=== PATIENT | male | born 1995 | race Caucasian/White ===

== ENCOUNTER 2016-08-21 18:18 | Emergency (ER) | payer BC ==
[~2016-08-21] VITALS: Ht 182.9 cm; Wt 80.1 kg
[2016-08-21 18:23] VITALS: TEMP 36.7; Ht 182.9 cm; Wt 80.1 kg
[2016-08-21] MEDS ORDERED: PRZC/10 PO (19:03)
[2016-08-21] MEDS ORDERED: EPP3/2 IM (19:03)
[2016-08-21] MEDS ORDERED: VENL75CA73 PO (19:03)
--- NOTE | 2016-08-21 19:30 | DIAGNOSTIC IMAGING REPORT ---
LEFT HAND MIN 3 VIEWS ROUTINE CLINICAL HISTORY: Left hand pain status post trauma COMPARISON: None. DISCUSSION: No acute fractures or dislocations are visualized. There is an old ununited ulnar styloid fracture. There is an old internally fixated distal radial fracture. IMPRESSION: Old postsurgical and post traumatic changes. No acute fractures. Electronically signed by: Roberto Allen M.D. 08/21/2016 7:28 PM Dictated Date/Time: 08/21/2016 7:28 PM
--- NOTE | 2016-08-21 19:31 | DIAGNOSTIC IMAGING REPORT ---
LEFT WRIST MIN 3 VIEWS ROUTINE CLINICAL HISTORY: Left wrist pain status post trauma COMPARISON: None. DISCUSSION: There is an old ununited ulnar styloid fracture. There is an old internally fixated distal radial fracture. No acute fractures or dislocations are visualized. IMPRESSION: Old posttraumatic and postsurgical changes. No acute fractures. Electronically signed by: Roberto Allen M.D. 08/21/2016 7:29 PM Dictated Date/Time: 08/21/2016 7:28 PM
[2016-08-21 19:52] VITALS: BP 130/76; PULSE 89; O2SAT 99
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
[2017-01-24] MEDS ORDERED: AZITTAB PO (02:09)
== END 2016-08-21 19:53 | disposition home or self-care (01) ==
LOC: C.EDB 18:19 → C.EDD 19:53
DX: S69.92XA Unspecified injury of left wrist, hand and finger(s), initial encounter (principal); W50.0XXA Accidental hit or strike by another person, initial encounter; Z79.899 Other long term (current) drug therapy

== ENCOUNTER → 2016-12-27 | Outpatient (CLI) | payer BC ==
[~2016-12-27] MED LIST: AMOX875T PO; AZITTAB PO; EPP3/2 IM; METH4PAK PO; ONDA4TAB10 SL; ONDA4TAB46 PO; PRZC/10 PO; VENL75CA73 PO
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
== END | disposition home or self-care (01) ==
LOC: C.MRI 13:52
PROVIDERS: ATTEND General Practice
DX: F07.81 Postconcussional syndrome (principal); G44.309 Post-traumatic headache, unspecified, not intractable; X58.XXXA Exposure to other specified factors, initial encounter

== ENCOUNTER 2017-01-25 01:29 | Emergency (ER) | payer BC ==
[~2017-01-25] VITALS: Ht 182.9 cm; Wt 82.6 kg
[~2017-01-25 01:29] MED LIST changes: -AMOX875T PO; -METH4PAK PO; -ONDA4TAB10 SL; -ONDA4TAB46 PO
[2017-01-25 01:39] VITALS: Ht 182.9 cm; Wt 82.6 kg
[2017-01-25] MEDS ORDERED: ONDA4TAB46 PO (02:09)
[2017-01-25] MEDS ORDERED: SODIUM CHLORIDE 0.9% 1000ML 1,000 ML IV STA (02:33)
[2017-01-25] MEDS ORDERED: ONDANSETRON INJ 2 MG/ML 2 ML VIAL IV STA (02:33)
[2017-01-25] MEDS ORDERED: KETOROLAC TROMETHAMINE 30 MG/ML VIAL IV STA (02:33)
[2017-01-25 02:55] LABS: BASO % 0.1 %; BASO ABS # 0.02 K/uL (0-0.2); COMPLETE YES; EOS % 0.2 %; HEMATOCRIT 45.5 % (42-52); IG% 0.3 %; LYMPH % 6.1 %; LYMPH ABS # 0.91 K/uL (1.2-3.4); MEAN CORPUSCULAR HEMOGLOBIN 32.3 pg (25-34); MEAN CORPUSCULAR HGB CONC 36.3 g/dl (32-36); MEAN PLATELET VOLUME 11.5 fL (7.4-10.4); MONO % 10.1 %; NEUT % 83.2 %; PLATELET COUNT 165 K/uL (130-400); RED BLOOD COUNT 5.11 M/uL (4.7-6.1); WHITE BLOOD COUNT 14.93 K/uL (4.8-10.8)
[2017-01-25 03:00] LABS: URINE APPEARANCE CLEAR (CLEAR); URINE BILIRUBIN NEG (NEG); URINE COLOR DK YELLOW; URINE NITRITE NEG (NEG); URINE PH 5.5 (4.5-7.5); URINE SPECIFIC GRAVITY 1.025 (1.000-1.030); UROBILINOGEN NEG (NEG); ZZUR CULT IF INDIC CLEAN CATCH NO
[2017-01-25 03:01] LABS: MANUAL MICROSCOPIC REQUIRED? NO; REVIEW REQ? NO
[2017-01-25 03:12] LABS: BUN/CREATININE RATIO 11.4 (10-20); CALCIUM 9.2 mg/dl (8.5-10.1); CREATININE 0.98 mg/dl (0.60-1.40); POTASSIUM 3.9 mmol/L (3.5-5.1)
[2017-01-25 03:15] LABS: ALB/GLOB RATIO 0.9 (0.9-2)
[2017-01-25] MEDS ORDERED: AMOXICIL/CLAVU 875MG HOME PACK PO ONE (04:00)
[2017-01-25] MEDS ORDERED: METH4PAK PO (04:08)
[2017-01-25] MEDS ORDERED: AMOX875T PO (04:08)
[2017-01-25] MEDS ORDERED: ONDA4TAB10 SL (04:08)
--- NOTE | 2017-01-25 04:09 | EMERGENCY ROOM VISIT NOTE ---
History First contact with patient: 02:09 Chief Complaint: ILLNESS Stated Complaint: PNEUMONIA,STOMACH PAIN,FATIGUE,VOMITING History of Present Illness The patient is a 21 year old male who presents to the Emergency Room with complaints of flulike symptoms. The patient states that he has been sick for approximately 2 weeks. He reports that he initially had a cough and sinus pressure. He attributed this to his previous septoplasty which was performed a few months ago. The patient states that over the past one week, he has developed nausea, vomiting, epigastric discomfort, sore throat and general weakness/fatigue. The patient was seen at an urgent care yesterday and diagnosed with pneumonia and a possible stomach ulcer. He was prescribed a Z- Jeff and Zofran which she has been taking with some relief. He rates his overall discomfort 8/10. He denies any neck pain/stiffness, urinary symptoms or changes in bowel movements. Review of Systems A complete 10 point review of systems was reviewed with the patient with pertinent positives and negatives as per history of present illness. All else were negative. Past Medical/Surgical History Medical Problems: (1) No Known Active Medical Problems (2) Wrist fracture Surgical Problems: (1) S/P wrist surgery Social History Smoking Status: Never Smoker Occupation Status: [employer] student Current/Historical Medications Scheduled Amoxicillin & Pot Clavulanate (Augmentin 875-125 mg), 1 TAB PO BID Azithromycin (Zithromax Z-Jeff), 1 PKT PO UD Methylprednisolone (Medrol Dosepak), 0 PO DAILY Ondasetron Odt (Zofran Odt), 4 MG SL Q6H Venlafaxine Hcl (Venlafaxine Extended Rel), 75 MG PO DAILY Scheduled PRN Epinephrine (Epipen), 0.3 MG IM UD PRN for ALLERGIC REACTION Ondansetron Hcl (Zofran), 4 MG PO Q6 PRN for Nausea Physical Exam Vital Signs Date Time Temp Pulse Resp B/P (MAP) Pulse Ox O2 Delivery O2 Flow Rate FiO2 01/25/17 04:21 36.8 99 18 114/58 97 01/25/17 03:16 101 18 128/67 98 Room Air 01/25/17 01:39 37.7 94 20 119/73 99 Room Air Physical Exam VITALS: Vitals are noted on the nurse's note and reviewed by myself. Vital signs stable. GENERAL: This is a 21-year-old male, in no acute distress, nondiaphoretic, well- developed well-nourished. SKIN: The skin was without rashes. EARS: External auditory canals clear, tympanic membranes pearly schultz without erythema or effusion bilaterally. EYES: Pupils equal round and reactive to light and accommodation. NOSE: Patent, turbinates without inflammation or discharge. MOUTH: Mucous membranes moist. Tonsils mildly enlarged bilaterally with erythema and exudate present on the right tonsil. Airway patent. NECK: Supple without nuchal rigidity. No lymphadenopathy. No meningismus. HEART: Regular rate and rhythm without murmurs gallops or rubs. LUNGS: Clear to auscultation bilaterally without wheezes, rales or rhonchi. ABDOMEN: Positive bowel sounds x 4. Soft, nontender to palpation. NEURO: Patient was alert and oriented to person place and time. Medical Decision & Procedures ER Provider Diagnostic Interpretation: CHEST X-RAY: No acute process. Laboratory Results 01/25/17 02:42 Red Blood Count 5.11, Mean Corpuscular Volume 89.0, Mean Corpuscular Hemoglobin 32.3, Mean Corpuscular Hemoglobin Concent 36.3, Mean Platelet Volume 11.5, Neutrophils (%) (Auto) 83.2, Lymphocytes (%) (Auto) 6.1, Monocytes (%) (Auto) 10.1, Eosinophils (%) (Auto) 0.2, Basophils (%) (Auto) 0.1, Neutrophils # (Auto ) 12.42, Lymphocytes # (Auto) 0.91, Monocytes # (Auto) 1.51, Eosinophils # (Auto ) 0.03, Basophils # (Auto) 0.02 01/25/17 02:42 Test 01/25/17 02:42 01/25/17 02:58 White Blood Count 14.93 K/uL (4.8-10.8) Red Blood Count 5.11 M/uL (4.7-6.1) Hemoglobin 16.5 g/dL (14.0-18.0) Hematocrit 45.5 % (42-52) Mean Corpuscular Volume 89.0 fL (80-100) Mean Corpuscular Hemoglobin 32.3 pg (25-34) Mean Corpuscular Hemoglobin Concent 36.3 g/dl (32-36) Platelet Count 165 K/uL (130-400) Mean Platelet Volume 11.5 fL (7.4-10.4) Neutrophils (%) (Auto) 83.2 % Lymphocytes (%) (Auto) 6.1 % Monocytes (%) (Auto) 10.1 % Eosinophils (%) (Auto) 0.2 % Basophils (%) (Auto) 0.1 % Neutrophils # (Auto) 12.42 K/uL (1.4-6.5) Lymphocytes # (Auto) 0.91 K/uL (1.2-3.4) Monocytes # (Auto) 1.51 K/uL (0.11-0.59) Eosinophils # (Auto) 0.03 K/uL (0-0.5) Basophils # (Auto) 0.02 K/uL (0-0.2) RDW Standard Deviation 40.4 fL (36.4-46.3) RDW Coefficient of Variation 12.5 % (11.5-14.5) Immature Granulocyte % (Auto) 0.3 % Immature Granulocyte # (Auto) 0.04 K/uL (0.00-0.02) Urine Color DK YELLOW Urine Appearance CLEAR (CLEAR) Urine pH 5.5 (4.5-7.5) Urine Specific [place] 1.025 (1.000-1.030) Urine Protein 1+ (NEG) Urine Glucose (UA) NEG (NEG) Urine Ketones 3+ (NEG) Urine Occult Blood 2+ (NEG) Urine Nitrite NEG (NEG) Urine Bilirubin NEG (NEG) Urine Urobilinogen NEG (NEG) Urine Leukocyte Esterase NEG (NEG) Urine WBC (Auto) 1-5 /hpf (0-5) Urine RBC (Auto) 0-4 /hpf (0-4) Urine Hyaline Casts (Auto) 1-5 /lpf (0-5) Urine Epithelial Cells (Auto) 5-10 /lpf (0-5) Urine Bacteria (Auto) NEG (NEG) Anion Gap 9.0 mmol/L (3-11) Est Creatinine Clear Calc Drug Dose 132.0 ml/min Estimated GFR () 128.1 Estimated GFR (Non- 110.5 BUN/Creatinine Ratio 11.4 (10-20) Calcium Level 9.2 mg/dl (8.5-10.1) Total Bilirubin 0.8 mg/dl (0.2-1) Aspartate Amino Transf (AST/SGOT) 17 U/L (15-37) Alanine Aminotransferase (ALT/SGPT) 21 U/L (12-78) Alkaline Phosphatase 79 U/L (45-117) Total Protein 7.9 gm/dl (6.4-8.2) Albumin 3.8 gm/dl (3.4-5.0) Globulin 4.1 gm/dl (2.5-4.0) Albumin/Globulin Ratio 0.9 (0.9-2) Monoscreen NEG (NEG) Influenza Type A Antigen Neg for Influ A (NEG) Influenza Type B Antigen Neg for Influ B (NEG) Medications Administered Medications (Trade) Dose Ordered Sig/[place] Route Start Time Stop Time Status Last Admin Dose Admin Sodium Chloride 1,000 ml @ 999 mls/hr Q1H1M STAT IV 01/25/17 02:33 01/25/17 03:33 DC 01/25/17 02:55 999 MLS/HR Ondansetron HCl (Zofran Inj) 4 mg NOW STAT IV 01/25/17 02:33 01/25/17 02:34 DC 01/25/17 02:55 4 MG Ketorolac Tromethamine (Toradol Inj) 30 mg NOW STAT IV 01/25/17 02:33 01/25/17 02:34 DC 01/25/17 02:56 30 MG Amoxicillin/ Clavulanate Potassium (Augmentin 875MG Home Pack) 1 homepack UD ONCE PO 01/25/17 04:00 01/25/17 04:01 DC 01/25/17 04:17 1 HOMEPACK Medical Decision Differential diagnosis includes mononucleosis, strep pharyngitis, influenza, viral illness, pneumonia, among others. The patient is a 21-year-old male who presents today complaining of flulike illness. Labs were unremarkable. Patient does have a leukocytosis likely secondary to infection. Monospot and influenza testing were negative. Rapid strep was negative, culture pending. He does have a low-grade fever. He was treated with fluids, Toradol and Zofran with significant relief. The patient will be treated for strep pharyngitis due to clinical suspicion. He will be placed on Augmentin. Conservative measures were discussed with the patient. Based on the patient's presentation and work up, I feel the patient is stable for outpatient treatment. The patient was educated to return to the emergency department for any worsening of their current condition or new/concerning symptoms. He will follow up with [facility]. Medication Reconcilliation Current Medication List: was personally reviewed by me Blood Pressure Screening Patient's blood pressure: Normal blood pressure Impression Primary Impression: Pharyngitis Departure Information Dispostion Home / Self-Care Condition GOOD Prescriptions Methylprednisolone (MEDROL DOSEPAK) 4 Mg Jeff 0 PO DAILY, #1 PKT Prov: Caitlin Pollard PA-C 01/25/17 Ondasetron Odt (ZOFRAN ODT) 4 Mg Tab 4 MG SL Q6H for Nausea, #10 TAB Prov: Caitlin Pollard PA-C 01/25/17 Amoxicillin & Pot Clavulanate (Augmentin 875-125 mg) 1 Tab Tab 1 TAB PO BID for 9 Days, #18 TAB Prov: Caitlin Pollard PA-C 01/25/17 Referrals [facility] (PCP) Patient Instructions My [facility] Additional Instructions You were prescribed Augmentin to be taken twice daily as prescribed. This is an antibiotic. All antibiotics have the potential to cause diarrhea. Stop this medication and contact a medical provider if you were to develop any significant adverse side effects including: wheezing, shortness of breath, passing out, vomiting, or a diffuse rash. Always take antibiotics as directed and COMPLETE the ENTIRE course regardless of the improvement of your symptoms. You have been prescribed a Medrol Dosepak. This is a steroid which will help decrease your inflammation. Take the medicine as prescribed. Take the ENTIRE 6 day course of the steroids. For pain control, you can use the following [id number] medicines (if >12 yo): - Regular strength (325mg/tab) Tylenol (acetaminophen) 2 tabs every 4-6 hours as needed. Do not exceed 12 tablets in a 24 hour period. Avoid taking more than 4 grams (4000 mg) of Tylenol per day. This includes any other sources of acetaminophen you may take on a regular basis. - Regular strength (200 mg/tab) Advil (ibuprofen) 1-2 tabs every 4-6 hours as needed. Do not exceed a dose of 3200 mg per day. Rest and drink plenty of fluids. Follow-up with [facility] this week for a recheck. Return to the emergency department if you have any worsening or new/concerning symptoms.
[2017-01-25 04:21] VITALS: BP 114/58; PULSE 99; TEMP 36.8; O2SAT 97
--- NOTE | 2017-01-25 06:48 | DIAGNOSTIC IMAGING REPORT ---
CHEST ONE VIEW PORTABLE HISTORY: 21 years-old Male cough, fever acute cough and fever. Initial exam. COMPARISON: None available. TECHNIQUE: Portable upright AP view of the chest FINDINGS: The cardiomediastinal and hilar silhouettes are within normal limits. There is no pneumothorax, pleural effusion or focal airspace consolidation. Bones of the chest are grossly intact. IMPRESSION: No acute cardiopulmonary process. The above report was generated using voice recognition software. It may contain grammatical, syntax or spelling errors. Electronically signed by: Danial Nguyen M.D. 01/25/2017 6:46 AM Dictated Date/Time: 01/25/2017 6:45 AM
== END 2017-01-25 04:21 | disposition home or self-care (01) ==
LOC: C.EDB 01:30
DX: J02.9 Acute pharyngitis, unspecified (principal); J18.9 Pneumonia, unspecified organism

== ENCOUNTER 2017-04-07 15:32 | Emergency (ER) | payer BC ==
[~2017-04-07] VITALS: Ht 182.9 cm; Wt 87.4 kg
[~2017-04-07 15:32] MED LIST changes: +ONDA4TAB10 SL; +ONDA4TAB46 PO; -PRZC/10 PO
[2017-04-07 15:36] VITALS: Ht 182.9 cm; Wt 87.4 kg
[2017-04-07] MEDS ORDERED: ONDANSETRON INJ 2 MG/ML 2 ML VIAL IV STA (15:44)
[2017-04-07] MEDS ORDERED: KETOROLAC TROMETHAMINE 30 MG/ML VIAL IV STA (15:44)
[2017-04-07] MEDS ORDERED: SODIUM CHLORIDE 0.9% 1000ML 2,000 ML IV STA (15:44)
[2017-04-07] MEDS ORDERED: ACETAMINOPHEN 500 MG TAB PO STA (15:46)
[2017-04-07 16:37] LABS: BASO % 0.4 %; BASO ABS # 0.06 K/uL (0-0.2); COMPLETE YES; EOS % 2.9 %; HEMATOCRIT 43.7 % (42-52); IG% 0.3 %; LYMPH % 11.3 %; LYMPH ABS # 1.57 K/uL (1.2-3.4); MEAN CELL VOLUME 90.3 fL (80-100); MEAN CORPUSCULAR HEMOGLOBIN 31.8 pg (25-34); MEAN CORPUSCULAR HGB CONC 35.2 g/dl (32-36); MEAN PLATELET VOLUME 11.7 fL (7.4-10.4); MONO % 12.3 %; NEUT % 72.8 %; PLATELET COUNT 179 K/uL (130-400); RED BLOOD COUNT 4.84 M/uL (4.7-6.1); WHITE BLOOD COUNT 13.86 K/uL (4.8-10.8)
[2017-04-07 16:59] LABS: BUN/CREATININE RATIO 11.8 (10-20); CALCIUM 8.9 mg/dl (8.5-10.1); CREATININE 0.97 mg/dl (0.60-1.40); POTASSIUM 3.7 mmol/L (3.5-5.1)
--- NOTE | 2017-04-07 17:00 | DIAGNOSTIC IMAGING REPORT ---
TWO VIEW CHEST CLINICAL HISTORY: Cough and fever. FINDINGS: PA and lateral chest radiographs are compared to study dated 01/25/2017. The cardiomediastinal silhouette is unremarkable. A dense airspace opacity is questioned at the left apex. This was not seen on 01/25/2017 and may represent a mild infectious/inflammatory pneumonitis. The lung are otherwise clear. No pleural effusion is identified. There is no pneumothorax. The bony thorax appears intact. IMPRESSION: There is a dense opacity at the left apex which is new from 01/25/2017 and may represent an infectious/inflammatory pneumonitis. Clinical correlation will be required and radiographic follow-up to resolution is recommended. Electronically signed by: Joaquim Longo M.D. 04/07/2017 4:59 PM Dictated Date/Time: 04/07/2017 4:56 PM
[2017-04-07 17:12] LABS: URINE APPEARANCE CLEAR (CLEAR); URINE BILIRUBIN NEG (NEG); URINE COLOR DK YELLOW; URINE EPITHELIAL CELL AUTO 0-5 /lpf (0-5); URINE NITRITE NEG (NEG); URINE SPECIFIC GRAVITY 1.032 (1.000-1.030); UROBILINOGEN NEG (NEG); ZZUR CULT IF INDIC CLEAN CATCH NO
[2017-04-07 17:17] LABS: MANUAL MICROSCOPIC REQUIRED? NO; REVIEW REQ? NO
[2017-04-07 17:36] VITALS: TEMP 36.8
[2017-04-07] MEDS ORDERED: LEVOFLOXACIN 250 MG TAB PO ONE (17:45)
[2017-04-07] MEDS ORDERED: LEVO1TAB35 PO (17:45)
[2017-04-07] MEDS ORDERED: ONDA4TAB65 PO (17:59)
[2017-04-07 18:04] VITALS: BP 131/71; PULSE 99; O2SAT 97
--- NOTE | 2017-04-07 18:38 | EMERGENCY ROOM VISIT NOTE ---
History Report prepared by Jerome: Joel Hunter Under the Supervision of: Dr. Osman Ching D.O. First contact with patient: 15:38 Chief Complaint: FLU LIKE SX Stated Complaint: NAUSEA,FEVER,COUGH,VOMITTING,MIGRAINES History of Present Illness The patient is a 22 year old male who presents to the Emergency Room with complaints of worsening flu like symptoms starting a week ago. The patient states that he started having on and off headaches, productive cough, sinus congestion, runny nose, sore throat, and body aches. He additionally states that he had a fever of 102 last night, and he has been coughing up green phlegm. The patient reports that he started vomiting three days ago, and he vomited twice today. notes that his nausea is worse at night. He states that he was seen by a doctor four days ago and was put on doxycycline for a sinus infection, though he has not been able to take it very well because he would vomit it back up. He notes that he has had mono in the past. Pt denies rash, change in vision, chest pain, shortness of breath, diarrhea, pain with urination , and melena. Source of History: patient Onset: a week ago Position: other (global) Quality: other (flu like symptoms) Timing: worsening Associated Symptoms: + fevers, + headache, + sorethroat, + cough, + nausea, + vomiting, No abdominal pain, No diarrhea, No rash Review of Systems See HPI for pertinent positives & negatives. A total of 10 systems reviewed and were otherwise negative. Past Medical & Surgical Medical Problems: (1) No Known Active Medical Problems (2) Wrist fracture Surgical Problems: (1) S/P wrist surgery Social History Smoking Status: Never Smoker Marital Status: single Housing Status: lives with roommate Occupation Status: [employer] student Current/Historical Medications Scheduled Levofloxacin (Levaquin), 750 MG PO QD@08 Ondansetron Hcl (Zofran), 4 MG PO TID Allergies Coded Allergies: Peanut (Verified Allergy, Intermediate, Swelling of throat, 04/07/17) Physical Exam Vital Signs Date Time Temp Pulse Resp B/P (MAP) Pulse Ox O2 Delivery O2 Flow Rate FiO2 04/07/17 18:04 99 16 131/71 97 04/07/17 17:50 99 16 131/71 97 Room Air 04/07/17 17:36 36.8 95 18 126/56 96 Room Air 04/07/17 17:00 97 20 136/80 97 Room Air 04/07/17 15:36 37.1 112 18 144/90 99 Room Air Physical Exam GENERAL: Sitting up in bed, disheveled, non-toxic HEAD: Tenderness over the frontal and maxillary sinuses. EYE EXAM: normal conjunctiva. PERRL and EOM's intact. OROPHARYNX: no exudate, no erythema, lips, buccal mucosa, and tongue normal and mucous membranes are moist NECK: supple, no nuchal rigidity, no adenopathy, non-tender. Negative Brudzinski LUNGS: Wheezes at bilateral bases. Normal chest wall mechanics HEART: no murmurs, S1 normal and S2 normal ABDOMEN: abdomen soft, non-tender, normo-active bowel sounds, no masses, no rebound or guarding. BACK: Back is symmetrical on inspection and there is no deformity, no midline tenderness, no CVA tenderness. SKIN: no rashes and no bruising UPPER EXTREMITIES: upper extremities are grossly normal. LOWER EXTREMITIES: No pitting edema. NEURO EXAM: Normal sensorium, cranial nerves II-XII intact, normal speech, no weakness of arms, no weakness of legs. No drift. Finger to nose intact. Sensation intact. Medical Decision & Procedures ER Provider Diagnostic Interpretation: Radiology results as stated below per my review and the radiologist's interpretation: TWO VIEW CHEST CLINICAL HISTORY: Cough and fever. FINDINGS: PA and lateral chest radiographs are compared to study dated 01/25/2017. The cardiomediastinal silhouette is unremarkable. A dense airspace opacity is questioned at the left apex. This was not seen on 01/25/2017 and may represent a mild infectious/inflammatory pneumonitis. The lung are otherwise clear. No pleural effusion is identified. There is no pneumothorax. The bony thorax appears intact. IMPRESSION: There is a dense opacity at the left apex which is new from 01/25/2017 and may represent an infectious/inflammatory pneumonitis. Clinical correlation will be required and radiographic follow-up to resolution is recommended. Electronically signed by: Joaquim Longo M.D. 04/07/2017 4:59 PM Dictated Date/Time: 04/07/2017 4:56 PM Laboratory Results 04/07/17 16:05 Red Blood Count 4.84, Mean Corpuscular Volume 90.3, Mean Corpuscular Hemoglobin 31.8, Mean Corpuscular Hemoglobin Concent 35.2, Mean Platelet Volume 11.7, Neutrophils (%) (Auto) 72.8, Lymphocytes (%) (Auto) 11.3, Monocytes (%) (Auto) 12.3, Eosinophils (%) (Auto) 2.9, Basophils (%) (Auto) 0.4, Neutrophils # (Auto ) 10.08, Lymphocytes # (Auto) 1.57, Monocytes # (Auto) 1.71, Eosinophils # (Auto ) 0.40, Basophils # (Auto) 0.06 04/07/17 16:05 Test 04/07/17 16:05 04/07/17 16:15 04/07/17 16:55 White Blood Count 13.86 K/uL (4.8-10.8) Red Blood Count 4.84 M/uL (4.7-6.1) Hemoglobin 15.4 g/dL (14.0-18.0) Hematocrit 43.7 % (42-52) Mean Corpuscular Volume 90.3 fL (80-100) Mean Corpuscular Hemoglobin 31.8 pg (25-34) Mean Corpuscular Hemoglobin Concent 35.2 g/dl (32-36) Platelet Count 179 K/uL (130-400) Mean Platelet Volume 11.7 fL (7.4-10.4) Neutrophils (%) (Auto) 72.8 % Lymphocytes (%) (Auto) 11.3 % Monocytes (%) (Auto) 12.3 % Eosinophils (%) (Auto) 2.9 % Basophils (%) (Auto) 0.4 % Neutrophils # (Auto) 10.08 K/uL (1.4-6.5) Lymphocytes # (Auto) 1.57 K/uL (1.2-3.4) Monocytes # (Auto) 1.71 K/uL (0.11-0.59) Eosinophils # (Auto) 0.40 K/uL (0-0.5) Basophils # (Auto) 0.06 K/uL (0-0.2) RDW Standard Deviation 39.6 fL (36.4-46.3) RDW Coefficient of Variation 12.1 % (11.5-14.5) Immature Granulocyte % (Auto) 0.3 % Immature Granulocyte # (Auto) 0.04 K/uL (0.00-0.02) Anion Gap 5.0 mmol/L (3-11) Est Creatinine Clear Calc Drug Dose 132.2 ml/min Estimated GFR () 128.8 Estimated GFR (Non- 111.1 BUN/Creatinine Ratio 11.8 (10-20) Calcium Level 8.9 mg/dl (8.5-10.1) Total Bilirubin 0.8 mg/dl (0.2-1) Direct Bilirubin 0.2 mg/dl (0-0.2) Aspartate Amino Transf (AST/SGOT) 17 U/L (15-37) Alanine Aminotransferase (ALT/SGPT) 22 U/L (12-78) Alkaline Phosphatase 78 U/L (45-117) Total Protein 8.2 gm/dl (6.4-8.2) Albumin 3.5 gm/dl (3.4-5.0) Lipase 113 U/L (73-393) Influenza Type A Antigen Neg for Influ A (NEG) Influenza Type B Antigen Neg for Influ B (NEG) Urine Color DK YELLOW Urine Appearance CLEAR (CLEAR) Urine pH 5.0 (4.5-7.5) Urine Specific [place] 1.032 (1.000-1.030) Urine Protein TRACE (NEG) Urine Glucose (UA) NEG (NEG) Urine Ketones TRACE (NEG) Urine Occult Blood TRACE (NEG) Urine Nitrite NEG (NEG) Urine Bilirubin NEG (NEG) Urine Urobilinogen NEG (NEG) Urine Leukocyte Esterase NEG (NEG) Urine WBC (Auto) 1-5 /hpf (0-5) Urine RBC (Auto) 0-4 /hpf (0-4) Urine Hyaline Casts (Auto) 1-5 /lpf (0-5) Urine Epithelial Cells (Auto) 0-5 /lpf (0-5) Urine Bacteria (Auto) NEG (NEG) Laboratory results per my review. Medications Administered Medications (Trade) Dose Ordered Sig/[place] Route Start Time Stop Time Status Last Admin Dose Admin Sodium Chloride 2,000 ml @ 999 mls/hr Q2H1M STAT IV 04/07/17 15:44 04/07/17 17:44 DC 04/07/17 16:10 999 MLS/HR Ondansetron HCl (Zofran Inj) 4 mg NOW STAT IV 04/07/17 15:44 127/17 15:46 DC 04/07/17 16:11 4 MG Ketorolac Tromethamine (Toradol Inj) 30 mg NOW STAT IV 04/07/17 15:44 04/07/17 15:46 DC 04/07/17 16:12 30 MG Acetaminophen (Tylenol Tab) 1,000 mg NOW STAT PO 04/07/17 15:46 04/07/17 15:47 DC 04/07/17 16:12 1,000 MG Levofloxacin (Levaquin Tab) 750 mg NOW ONCE PO 04/07/17 17:45 04/07/17 17:46 DC 04/07/17 17:49 750 MG ED Course ED COURSE: Vital signs were reviewed and showed tachycardia The patients medical record was reviewed The above diagnostic studies were performed and reviewed. ED treatments and interventions as stated above. 1538: The patient was evaluated in room A3. A complete history and physical examination was performed. 1544: Toradol 30mg IV, Zofran 4mg IV, Sodium Chloride 2000 ml @ 999 mls/hr IV 1546: Tylenol Tab 1000mg PO, Levofloxacin 750mg PO 1650: I reevaluated the patient, and he was feeling better. 1802: Upon reevaluation, the patient is doing well and feeling better. I discussed my findings with the patient and he understands and agrees with the treatment plan. Based on the patients age, coexisting illnesses, exam and lab findings the decision to treat as an outpatient was made. The patient remained stable while under my care. The patient appeared well at the time of discharge. Medical Decision Differential diagnosis includes etiologies such as sepsis, UTI, pneumonia, metabolic, electrolyte abnormalities, cardiac sources, intracerebral event, toxicologic, neurologic, as well as others were entertained. Patient is a 22-year-old male who presents to ER for upper esterase symptoms consistent with a cough, runny nose, sore throat, sinus congestion and headache. He has been having intermittent fevers as well. Prescribed doxycycline but has not taken it for 2-3 days due to intermittent vomiting. Abdominal exam is completely benign. No signs of peritonitis. Vitals are stable. Patient was given 2 L normal saline, Toradol, Tylenol and felt significant better. Labs show a mild leukocytosis. BMP all LFTs, bilirubin lipase is unremarkable. UA was negative. Influenza was negative. Rapid strep was negative. Chest x-ray supports a pneumonia. Patient was updated bedside and given oral Levaquin. He was instructed to stop taking doxycycline. He was discharged on Levaquin and Zofran. He'll follow up with S. Discussed with Pt concerning signs and symptoms to watch out for. Pt was instructed to follow up with their PCP and discussed with the patient their option to return to the ED at anytime for persistent or worsening symptoms. The appropriate anticipatory guidance and out-patient management, including indications for return to the emergency department, were explained at length to the patient and understood. Medication Reconcilliation Current Medication List: was personally reviewed by me Blood Pressure Screening Patient's blood pressure: Normal blood pressure Impression Primary Impression: Pneumonia Additional Impressions: Leukocytosis Vomiting Scribe Attestation The scribe's documentation has been prepared under my direction and personally reviewed by me in its entirety. I confirm that the note above accurately reflects all work, treatment, procedures, and medical decision making performed by me. Departure Information Dispostion Home / Self-Care Prescriptions Ondansetron Hcl (ZOFRAN) 4 Mg Tab 4 MG PO TID for Nausea, #30 TAB Prov: Osman Ching, DO 04/07/17 Levofloxacin (Levaquin) 750 Mg Tab 750 MG PO QD@08, #9 TAB Prov: Osman Ching, DO 04/07/17 Referrals [facility] (PCP) Forms HOME CARE DOCUMENTATION FORM, IMPORTANT VISIT INFORMATION Patient Instructions My [facility], Pneumonia (Bacterial) - [facility] Additional Instructions Please follow up with your primary care doctor or if you are a student, [facility] services with in the next 24 hours. Any worsening of your symptoms, please return to the ED immediately. This includes any fevers greater than 100.4, worsening pain, chest pain, shortness breath, persistent nausea, vomiting, unable to eat or drink, or any other concerning signs or symptoms from your standpoint. Please take Tylenol or Motrin as needed for fevers. Please take Zofran as needed for nausea. Please stop taking doxycycline and start taking Levaquin as prescribed. Problem Qualifiers Primary Impression: Pneumonia Pneumonia type: due to unspecified organism Laterality: unspecified laterality Lung location: unspecified part of lung Qualified Codes: J18.9 - Pneumonia, unspecified organism Additional Impressions: Leukocytosis Leukocytosis type: unspecified Qualified Codes: D72.829 - Elevated white blood cell count, unspecified Vomiting Vomiting type: unspecified Vomiting Intractability: unspecified Nausea presence: unspecified Qualified Codes: R11.10 - Vomiting, unspecified
== END 2017-04-07 18:02 | disposition home or self-care (01) ==
LOC: C.EDB 15:34 → C.EDA 18:02
DX: J18.9 Pneumonia, unspecified organism (principal); D72.829 Elevated white blood cell count, unspecified; R11.10 Vomiting, unspecified; Z79.899 Other long term (current) drug therapy